=== PATIENT | female | born 1940 | race Caucasian/White ===

== ENCOUNTER 2018-12-21 00:48 | Inpatient (IN) | payer MEDICARE, MEDICAID ==
[~2018-12-21] VITALS: Ht 167.6 cm; Wt 100.7 kg
--- NOTE | 2018-12-21 00:53 | NUR ---
ED Nurse Note: PT ARRIVED WITH RA [facility] FROM A [facility]. PT STATES SHE WAS FEELING SHORTNESS OF BREATH WHEN SHE WENT OUT FOR A WALK. PLACED ON BUILDING RIGGER, EKG IS BEING COMPLETED.
[2018-12-21 00:56] VITALS: BP 118/72
--- NOTE | 2018-12-21 01:00 | Emergency Room Report ---
History of Present Illness General Chief Complaint: Chest Pain Source: EMS Present Illness HPI 78-year-old female history lives limited secondary to dementia presents with shortness of breath, chest pain x1 day possibly, patient was seen walking outside halfway, she states that there has been a transplantation of her chest and they are trying to steal her organs, unknown aggravating relieving factors severity is unknown, patient has a history of COPD and presents for evaluation Allergies: Coded Allergies: No Known Allergies (Unverified , 12/21/18) Patient History Limited by: medical condition - Dementia Past Medical History: see triage record Reviewed Nursing Documentation: PMH: Agreed; PSxH: Agreed Nursing Documentation-PMH Past Medical History: No History, Except For Hx COPD: Yes History Of Psychiatric Problem: Yes Review of Systems All Other Systems: limited - Dementia Physical Exam Vital Signs Date Time Temp Pulse Resp B/P (MAP) Pulse Ox O2 Delivery O2 Flow Rate FiO2 12/21/18 00:51 98.2 92 20 118/72 (87) 97 Room Air Sp02 EP Interpretation: reviewed, normal General Appearance: alert, GCS 15, mild distress Head: normocephalic, atraumatic Eyes: bilateral eye PERRL, bilateral eye EOMI ENT: uvula midline, moist mucus membranes Neck: supple, thyroid normal, supple/symm/no masses Respiratory: decreased breath sounds, wheezing Cardiovascular #1: normal peripheral pulses, regular rate, rhythm, no edema, no gallop, no murmur Gastrointestinal: non tender, soft, no guarding, no rebound Musculoskeletal: normal inspection Neurologic: alert, responsive Psychiatric: mood/affect normal Skin: no rash, warm/dry Procedures Critical Care Time Critical Care Time Given the critical condition in which the patient arrived, the patient was immediately assessed by myself and the nurse, and cardiac monitoring initiated due to the potential for rapid decompensation of the patient's clinical condition. During the course of the patient's stay, I spent a considerable amount of time at the bedside performing serial re-evaluations of the patient's hemodynamic and clinical status because of the recognized potential threat to life or limb in this condition. I then had a chance to review not only all of the available current laboratory and radiographic studies obtained today, but I also reviewed old records available to me at the time. Additionally, any ancillary information available including professor of engineering records were reviewed. Sequential vital signs were obtained. Critical Care time of 34 minutes was performed exclusive of billable procedures. Medical Decision Making Diagnostic Impression: Primary Impression: Chest pain Qualified Codes: R07.9 - Chest pain, unspecified Additional Impressions: COPD exacerbation CHF exacerbation Qualified Codes: I50.23 - Acute on chronic systolic (congestive) heart failure ER Course 78-year-old female presents with acute shortness of breath initially in resp distress differential diagnosis includes COPD, CHF exacerbation, ACS patient with pulmonary edema chest x-ray, We will start Lasix, will start steroids for possible COPD exacerbation as well , breathing treatments Reevaluation 2:35 AM, patient still short of breath, but slowly improving Patient will be admitted to telemetry Reevaluation 3:19AM patient comfortable sleeping Patient admitted to Dr. Castro Laboratory Tests Test 12/21/18 01:10 White Blood Count 6.0 K/UL (4.8-10.8) Red Blood Count 3.35 M/UL (4.20-5.40) L Hemoglobin 10.7 G/DL (12.0-16.0) L Hematocrit 32.2 % (37.0-47.0) L Mean Corpuscular Volume 96 FL (80-99) Mean Corpuscular Hemoglobin 32.0 PG (27.0-31.0) H Mean Corpuscular Hemoglobin Concent 33.3 G/DL (32.0-36.0) Red Cell Distribution Width 13.1 % (11.6-14.8) Platelet Count 257 K/UL (150-450) Mean Platelet Volume 5.3 FL (6.5-10.1) L Neutrophils (%) (Auto) 61.3 % (45.0-75.0) Lymphocytes (%) (Auto) 27.7 % (20.0-45.0) Monocytes (%) (Auto) 6.4 % (1.0-10.0) Eosinophils (%) (Auto) 3.5 % (0.0-3.0) H Basophils (%) (Auto) 1.1 % (0.0-2.0) Sodium Level 132 MMOL/L (136-145) L Potassium Level 4.2 MMOL/L (3.5-5.1) Chloride Level 96 MMOL/L (98-107) L Carbon Dioxide Level 29 MMOL/L (21-32) Anion Gap 7 mmol/L (5-15) Blood Urea Nitrogen 24 mg/dL (7-18) H Creatinine 1.0 MG/DL (0.55-1.30) Estimate Glomerular Filtration Rate mL/min (>60) Glucose Level 129 MG/DL (74-106) H Calcium Level 8.9 MG/DL (8.5-10.1) Total Bilirubin 0.4 MG/DL (0.2-1.0) Aspartate Amino Transferase (AST) 29 U/L (15-37) Alanine Aminotransferase (ALT) 40 U/L (12-78) Alkaline Phosphatase 51 U/L (46-116) Troponin I 0.000 ng/mL (0.000-0.056) Total Protein 7.1 G/DL (6.4-8.2) Albumin 3.8 G/DL (3.4-5.0) Globulin 3.3 g/dL Albumin/Globulin Ratio 1.2 (1.0-2.7) Lipase 157 U/L (73-393) EKG Diagnostic Results EKG Time: 00:53 EP Interpretation: NSR, rate 67, QTc 456, no acute ST elevations, normal axis Rhythm Strip Diag. Results Rhythm Strip Time: 01:15 EP Interpretation: yes Rate: 68 Rhythm: NSR, no PVC's, no ectopy Chest X-Ray Diagnostic Results Chest X-Ray Diagnostic Results : Chest X-Ray Ordered: Yes # of Views/Limited/Complete: 1 View Indication: Chest Pain EP Interpretation: Yes Interpretation: other - pulmonary edema Impression: Other - pulmonary edema Electronically Signed by: Franklin Vines MD Last Vital Signs Date Time Temp Pulse Resp B/P (MAP) Pulse Ox O2 Delivery O2 Flow Rate FiO2 12/21/18 00:56 92 20 Room Air 12/21/18 00:51 98.2 118/72 (87) 97 Disposition: ADMITTED INPATIENT Condition: Stable Franklin Vines MD Dec 21, 2018 01:00
--- NOTE | 2018-12-21 01:05 | NUR ---
ED Nurse Note: PT ATTEMPTED TO TAKE OUT IV SITE; PT WAS REORIENTED AND IV SITE SECURED
[2018-12-21] MEDS ORDERED: Solu-MEDROL 125mg Inj IVP ONE (01:15)
--- NOTE | 2018-12-21 01:16 | NUR ---
ED Nurse Note: PT REFUSED PREDNISONE, INFORMED ERMD. AWAITING FOR NEW ORDERS
[2018-12-21] MEDS: Ipratropium 0.02% Inh Soln 2.5ml UD HHN SCH ×3 (01:21→01:34)
[2018-12-21] MEDS: Albuterol ud Inhalation HHN SCH ×3 (01:21→01:34)
[2018-12-21 01:27] LABS: BASOPHILS % (AUTO) 1.1 % (0.0-2.0); EOSINOPHILS % (AUTO) 3.5 % (0.0-3.0); HEMATOCRIT 32.2 % (37.0-47.0); HEMOGLOBIN 10.7 G/DL (12.0-16.0); LYMPHOCYTES % (AUTO) 27.7 % (20.0-45.0); MEAN CORPUSCULAR VOLUME 96 FL (80-99); MONOCYTES % (AUTO) 6.4 % (1.0-10.0); NEUTROPHILS % (AUTO) 61.3 % (45.0-75.0); PLATELET COUNT 257 K/UL (150-450); RED BLOOD COUNT 3.35 M/UL (4.20-5.40); RED CELL DISTRIBUTION WIDTH 13.1 % (11.6-14.8)
[2018-12-21 01:36] LABS: ANION GAP 7 mmol/L (5-15); BLOOD UREA NITROGEN 24 mg/dL (7-18); CALCIUM 8.9 MG/DL (8.5-10.1); CARBON DIOXIDE 29 MMOL/L (21-32); CHLORIDE 96 MMOL/L (98-107); POTASSIUM 4.2 MMOL/L (3.5-5.1); SODIUM 132 MMOL/L (136-145)
[2018-12-21 01:41] LABS: ALANINE AMINOTRANSFERASE 40 U/L (12-78); ALBUMIN 3.8 G/DL (3.4-5.0); ALBUMIN/GLOBULIN RATIO 1.2 (1.0-2.7); ALKALINE PHOSPHATASE 51 U/L (46-116); ASPARTATE AMINO TRANSFERASE 29 U/L (15-37); BILIRUBIN,TOTAL 0.4 MG/DL (0.2-1.0)
--- NOTE | 2018-12-21 01:51 | NUR ---
ED Nurse Note: RT AT THE BEDSIDE.
--- NOTE | 2018-12-21 02:30 | NUR ---
ED Nurse Note: XRAY COMPLETED
[2018-12-21] MEDS ORDERED: COLACE100 MG ORAL (02:58)
[2018-12-21] MEDS ORDERED: NITROSTAT0.4 M1 SL (02:58)
[2018-12-21] MEDS ORDERED: CRANBERRY450 M4 PO (02:58)
[2018-12-21] MEDS ORDERED: ROBITUSSIN100 MG/52 ORAL (02:58)
[2018-12-21] MEDS ORDERED: FLEET ENEMA133 M1 RC (02:58)
[2018-12-21] MEDS ORDERED: ATORVASTATIN CA20 MG ORAL (02:58)
[2018-12-21] MEDS ORDERED: DEPAKOTE SPRIN125 MG PO (02:58)
[2018-12-21] MEDS ORDERED: ASPIRIN EC325 MG ORAL (02:58)
[2018-12-21] MEDS ORDERED: PEPCID AC20 M2 PO (02:58)
[2018-12-21] MEDS ORDERED: LOVENOX40 MG/0.4 SUBQ (02:58)
[2018-12-21] MEDS ORDERED: ALBUTEROL2.5 MG/3 M INH (02:58)
[2018-12-21] MEDS ORDERED: ADVAIR 250/501 PUFFS INH (02:58)
[2018-12-21] MEDS ORDERED: CLONIDINE0.1 MG PO (02:58)
[2018-12-21] MEDS ORDERED: AMANTADINE100 M2 ORAL (02:58)
[2018-12-21] MEDS ORDERED: MOM30 ML ORAL (02:58)
--- NOTE | 2018-12-21 03:00 | NUR ---
ED Nurse Note: PT REFUSED VRE, CRE, AND MRSA SWABS
--- NOTE | 2018-12-21 03:15 | NUR ---
ED Nurse Note: PT URINATED ON BED. PT REFUSED TO REMOVE PANTS. PT LINENS WERE CHANGED.
[2018-12-21] MEDS ORDERED: PREDNISONE20 M1 PO (03:20)
[2018-12-21] MEDS ORDERED: SYNTHROID175 MCG ORAL (03:20)
[2018-12-21] MEDS ORDERED: TYLENOL EXTRA500 MG ORAL (03:20)
[2018-12-21] MEDS ORDERED: ZOFRAN4 M1 ORAL (03:20)
[2018-12-21] MEDS ORDERED: ZYPREXA15 MG ORAL (03:20)
[2018-12-21] MEDS ORDERED: ACETAMINOPHEN325 M1 ORAL (03:20)
[2018-12-21] MEDS ORDERED: VITAMIN D400 INTLU ORAL (03:20)
[2018-12-21 03:21] VITALS: BP 131/79
--- NOTE | 2018-12-21 03:53 | NUR ---
ED Nurse Note: TELEPHONE REPORT GIVEN TO OLE THORNE FOR CONTINUITY OF CARE.
--- NOTE | 2018-12-21 04:00 | NUR ---
TRANSFER TO FLOOR: Patient transferred to TELE as ordered, per ERMD. Report given to OLE THORNE . Belongings given to PT.
--- NOTE | 2018-12-21 04:05 | NUR ---
NURSE NOTES: Received pt from ED via tamera. Pt transferred to bed in without any incident. Received report from OLE Perez. Pt is A/Ox1-2. Billings pt to room and unit. electronic device monitor is in placed, IV site intact, asymptomatic, and patent. Bed is in the lowest position and locked. Call light within reach. Belongings list checked and accounted for. No signs/ symptoms of acute distress noted at this time. Will contact Dr. Regan for admission orders.
[2018-12-21 04:10] VITALS: BP 158/71
--- NOTE | 2018-12-21 05:15 | NUR ---
NURSE NOTES: Received admission orders from Dr. Regan. Will note and carry out.
[2018-12-21] MEDS ORDERED: Albuterol/Ipratropium 3ml neb HHN PRN (05:30)
[2018-12-21] MEDS ORDERED: Nitroglycerin Subl 0.4mg tab SL PRN (05:45)
[2018-12-21] MEDS: Solu-MEDROL 40mg Inj IVP SCH ×3 (06:29→22:00)
[2018-12-21] MEDS: Albuterol/Ipratropium 3ml neb HHN SCH ×3 (06:45→20:24)
[2018-12-21 07:20] LABS: ALANINE AMINOTRANSFERASE 41 U/L (12-78); ALBUMIN 4.1 G/DL (3.4-5.0); ALBUMIN/GLOBULIN RATIO 1.2 (1.0-2.7); ALKALINE PHOSPHATASE 50 U/L (46-116); ANION GAP 6 mmol/L (5-15); ASPARTATE AMINO TRANSFERASE 28 U/L (15-37); BILIRUBIN,TOTAL 0.4 MG/DL (0.2-1.0); BLOOD UREA NITROGEN 20 mg/dL (7-18); CALCIUM 8.9 MG/DL (8.5-10.1); CARBON DIOXIDE 33 MMOL/L (21-32); CHLORIDE 98 MMOL/L (98-107); POTASSIUM 3.8 MMOL/L (3.5-5.1); SODIUM 137 MMOL/L (136-145)
--- NOTE | 2018-12-21 07:46 | NUR ---
HAND-OFF: Report given to OLE Huston.
[2018-12-21 08:00] VITALS: BP 139/52
[2018-12-21] MEDS ORDERED: Depakote 125mg Sprinkles ORAL SCH ×2 (09:00→15:00)
[2018-12-21] MEDS: Vitamin D 1000 IU Tab ORAL SCH (09:09)
[2018-12-21] MEDS: Aspirin EC 325mg tab ORAL SCH (09:10)
[2018-12-21] MEDS: OLANZapine 10mg tab ORAL SCH ×2 (09:10→17:34)
[2018-12-21] MEDS: Amantadine 100mg cap ORAL SCH ×2 (09:10→17:34)
[2018-12-21] MEDS: Docusate 100mg cap ORAL SCH (09:10)
[2018-12-21] MEDS: Milk of Magnesia 30ml Ud ORAL SCH (09:10)
[2018-12-21] MEDS: Enoxaparin 40mg Inj SUBQ SCH ×2 (09:12→21:00)
--- NOTE | 2018-12-21 09:37 | NUR ---
CASE MANAGEMENT: REVIEW 78 YR OLD FEMALE BIBA FROM [facility] CC: CHEST PAIN; SOB SI: COPD AND CHF EXACERBATION 98.3 92 20 118/72 97% RA TROP- NEG; H/H 10.7 / 32.2; BUN+ 24 IS: IV LASIX X1 ALBUTEROL HHN ATROVENT IVF NS BOLUS IV SOLUMEDROL X1 : TO TELE DCP: RETURN TO [facility]
--- NOTE | 2018-12-21 14:10 | Cardiac Electrophysiology PN ---
Subjective Subjective [id number] Objective Last 24 Hour Vital Signs Date Time Temp Pulse Resp B/P (MAP) Pulse Ox O2 Delivery O2 Flow Rate FiO2 12/21/18 12:43 68 18 99 Nasal Cannula 28 62 16 95 12/21/18 12:00 61 12/21/18 09:00 Room Air 12/21/18 08:00 97.3 67 19 139/52 (81) 92 12/21/18 06:46 55 17 99 Nasal Cannula 28 65 18 93 12/21/18 04:31 Nasal Cannula 2.0 12/21/18 04:25 72 12/21/18 04:10 96.8 76 20 158/71 (100) 92 12/21/18 04:00 98.2 59 16 126/73 97 Room Air 12/21/18 03:21 98.0 54 15 131/79 100 Room Air 21 12/21/18 01:35 53 15 100 Room Air 21 60 17 100 12/21/18 01:21 56 17 100 Room Air 21 57 21 98 12/21/18 00:56 98.2 92 20 118/72 96 Room Air 12/21/18 00:56 92 20 Room Air 12/21/18 00:51 98.2 92 20 118/72 (87) 97 Room Air Intake and Output 12/20/18 12/21/18 19:00 07:00 Intake Total 1000 ml Output Total 0 ml Balance 1000 ml Intake IV Total 1000 ml Output Urine Total 0 ml # Voids 2 Laboratory Tests Test 12/21/18 01:10 12/21/18 06:10 White Blood Count 6.0 K/UL (4.8-10.8) Red Blood Count 3.35 M/UL (4.20-5.40) L Hemoglobin 10.7 G/DL (12.0-16.0) L Hematocrit 32.2 % (37.0-47.0) L Mean Corpuscular Volume 96 FL (80-99) Mean Corpuscular Hemoglobin 32.0 PG (27.0-31.0) H Mean Corpuscular Hemoglobin Concent 33.3 G/DL (32.0-36.0) Red Cell Distribution Width 13.1 % (11.6-14.8) Platelet Count 257 K/UL (150-450) Mean Platelet Volume 5.3 FL (6.5-10.1) L Neutrophils (%) (Auto) 61.3 % (45.0-75.0) Lymphocytes (%) (Auto) 27.7 % (20.0-45.0) Monocytes (%) (Auto) 6.4 % (1.0-10.0) Eosinophils (%) (Auto) 3.5 % (0.0-3.0) H Basophils (%) (Auto) 1.1 % (0.0-2.0) Sodium Level 132 MMOL/L (136-145) L 137 MMOL/L (136-145) Potassium Level 4.2 MMOL/L (3.5-5.1) 3.8 MMOL/L (3.5-5.1) Chloride Level 96 MMOL/L (98-107) L 98 MMOL/L (98-107) Carbon Dioxide Level 29 MMOL/L (21-32) 33 MMOL/L (21-32) H Anion Gap 7 mmol/L (5-15) 6 mmol/L (5-15) Blood Urea Nitrogen 24 mg/dL (7-18) H 20 mg/dL (7-18) H Creatinine 1.0 MG/DL (0.55-1.30) 1.0 MG/DL (0.55-1.30) Estimat Glomerular Filtration Rate mL/min (>60) mL/min (>60) Glucose Level 129 MG/DL (74-106) H 134 MG/DL (74-106) H Calcium Level 8.9 MG/DL (8.5-10.1) 8.9 MG/DL (8.5-10.1) Total Bilirubin 0.4 MG/DL (0.2-1.0) 0.4 MG/DL (0.2-1.0) Aspartate Amino Transf (AST/SGOT) 29 U/L (15-37) 28 U/L (15-37) Alanine Aminotransferase (ALT/SGPT) 40 U/L (12-78) 41 U/L (12-78) Alkaline Phosphatase 51 U/L (46-116) 50 U/L (46-116) Troponin I 0.000 ng/mL (0.000-0.056) Total Protein 7.1 G/DL (6.4-8.2) 7.5 G/DL (6.4-8.2) Albumin 3.8 G/DL (3.4-5.0) 4.1 G/DL (3.4-5.0) Globulin 3.3 g/dL 3.4 g/dL Albumin/Globulin Ratio 1.2 (1.0-2.7) 1.2 (1.0-2.7) Lipase 157 U/L (73-393) Magnesium Level 1.7 MG/DL (1.8-2.4) L Pro-B-Type Natriuretic Peptide 1961 pg/mL (0-125) H Oliver Bernal MD Dec 21, 2018 14:10
--- NOTE | 2018-12-21 14:44 | Cardiology Report ---
APPROVED REPORT EKG Measurement Heart [id number] Sinus rhythm with 1st degree AV block Otherwise normal ECG
--- NOTE | 2018-12-21 16:10 | NUR ---
NURSE NOTES: Notified the Dr. Bernal that the pt refused the 2d echo and is currently refusing the heart monitor. Will continue to monitor.
--- NOTE | 2018-12-21 16:47 | NUR ---
NURSE NOTES: Patient pulled out her IV, She refuses to let us insert a new one.
--- NOTE | 2018-12-21 17:28 | Diagnostic Imaging Report ---
Indication: Dyspnea Technique: One view of the chest Comparison: none Findings: The heart is markedly enlarged. There is bilateral interstitial congestion. There may be some patchy airspace consolidation on the right. The pleural spaces are grossly clear. Impression: Cardiomegaly with evidence of interstitial edema
--- NOTE | 2018-12-21 17:37 | Diagnostic Imaging Report ---
Indication: Dyspnea Technique: One view of the chest Comparison: 8 minutes earlier Findings: Patient is rotated to the right. The heart remains markedly enlarged. Patchy opacities in the right lung are again demonstrated. Generalized interstitial congestion is again demonstrated. Findings are unchanged Impression: Unchanged findings as described
--- NOTE | 2018-12-21 19:15 | Consultation ---
DATE OF CONSULTATION: 12/21/2018 CARDIOLOGY CONSULTATION CONSULTING PHYSICIAN: Oliver Bernal M.D. REFERRING PHYSICIAN: Mark Regan M.D. REASON FOR CONSULTATION: Chest pain and shortness of breath. HISTORY OF PRESENT ILLNESS: The patient is a 78-year-old lady with underlying dementia, presented to emergency room for shortness of breath and chest pain of one day duration. The patient was seen walking outside of [facility] and stated that she has had a transplantation of her chest and they were trying to organs. The patient also has history of COPD. The patient's blood pressure in the ER was 118/70 with heart rate of 93, respirations 20. She was admitted. At the time of my evaluation, the patient is comfortable, but is confused. Denies any chest pain. REVIEW OF SYSTEMS: Review of systems was negative other than what is mentioned in the history of present illness. PAST MEDICAL HISTORY: As mentioned above. FAMILY HISTORY: Noncontributory. SOCIAL HISTORY: [facility] resident. Does not smoke or drink alcohol. PHYSICAL EXAMINATION: VITAL SIGNS: Show blood pressure of 139/52, pulse 68, respirations 18, and temperature 97.3. HEAD AND NECK: Showed no JVD. LUNGS: Coarse rhonchi. CARDIOVASCULAR: Regular S1 and S2 with no gallop or murmur. ABDOMEN: Soft. EXTREMITIES: No pitting edema. LABORATORY AND DIAGNOSTIC DATA: Labs show white count of 6, hemoglobin 10.7, hematocrit 32.2, and platelet count 257. Sodium is 137, potassium 3.8, BUN of 20, creatinine 1, and glucose of 134. Troponin is negative. BNP is 1961. ASSESSMENT/PLAN: 1. Shortness of breath likely due to congestive heart failure, BNP of almost 2000. We will get an echocardiogram for further evaluation. Start the patient on Lasix mg daily. Get an echo for further evaluation. 2. Hypothyroidism on Synthroid. 3. Hypertension on Lasix and p.r.n. clonidine. 4. COPD. 5. Hyperlipidemia on Lipitor. 6. Dementia. Thank you very much, Dr. Regan, for allowing me to participate in the care of this patient. Please do not hesitate to contact me for any questions regarding my evaluation. Sincerely, Oliver Bernal M.D. DR: Willis JOB#: [id number] CC:
--- NOTE | 2018-12-21 19:33 | NUR ---
HAND-OFF: Report given to OLE Owen. Plan of care endorsed
--- NOTE | 2018-12-21 19:35 | NUR ---
NURSE NOTES: Received report from OLE Huston. Pt is resting in bed. In no acute distress. Received pt with no IV access. Pt refusing IV access. Pt is also refusing lab tech. Bed in lowest position, call light within reach. Will continue plan of care.
[2018-12-21 20:00] VITALS: BP 120/54
--- NOTE | 2018-12-21 20:15 | Consultation ---
DATE OF CONSULTATION: 12/21/2018 HISTORY OF PRESENT ILLNESS: I am familiar with this patient. The patient has been seen by [facility], 78-year-old female with a history of multiple medical comorbidities including COPD, CHF, depression, anxiety, and psychotic disorder. The patient has been treated with Depakote and olanzapine. During the evaluation, the patient is calm and able to answer the questions appropriately. The patient has episodes of anxiety and agitation. The patient is uncooperative with the staff and refusing care and workups. PAST PSYCHIATRIC HISTORY: Schizophrenia. PAST MEDICAL HISTORY: As above. ALLERGIES: No known drug allergies. SUBSTANCE ABUSE HISTORY: No known history of illicit drug use or alcohol. MENTAL STATUS EXAMINATION: The patient is alert and oriented times self. Mood is agitated. Affect is flat. Thought process, there is a paucity of thought content. Thought content, no suicidal or homicidal ideation. Cognition is impaired. Insight and judgment impaired. ASSESSMENT: [place] I Schizoaffective disorder versus schizophrenia. [place] II Deferred. [place] III As above. [place] IV Low to moderate. [place] V 20 PLAN: 1. We will change the Depakote to 500 b.i.d. 2. Zyprexa 10 mg b.i.d. 3. Provide the patient with reality orientation and supportive therapy. Zora Hemphill M.D. DR: Ivanna JOB#: [id number] CC: MIKE
[2018-12-21] MEDS: Depakote 125mg Sprinkles ORAL SCH (21:00)
[2018-12-22] VITALS: BP 120/58
--- NOTE | 2018-12-22 00:52 | History & Physical ---
History of Present Illness General Date patient seen: Dec 21, 2018 Time patient seen: 12:00 Reason for Hospitalization: Chest Pain Present Illness HPI SOB x 1 day and chest pain. No fever, chills, nausea and vomiting. No significant cough. Chest pain nonspecific. Allergies: Coded Allergies: No Known Allergies (Unverified , 12/21/18) Medication History Scheduled Amantadine Hcl* (Amantadine*), 100 MG ORAL TWICE A DAY, (Reported) Aspirin* (Aspirin Ec*), 325 MG ORAL DAILY, (Reported) Atorvastatin Calcium* (Atorvastatin Calcium*), 10 MG ORAL BEDTIME, (Reported) Clonidine HCl (Clonidine HCl), 0.1 MG PO Q6HR, (Reported) Cranberry Fruit Concentrate (Cranberry), 900 MG PO BID, (Reported) Divalproex Sodium (Depakote Sprinkle), 250 MG PO TID, (Reported) Docusate Sodium* (Colace*), 100 MG ORAL DAILY, (Reported) Enoxaparin (Lovenox), 40 MG SUBQ Q12HR, (Reported) Fluticasone/Salmeterol (Advair 250-50 Diskus), 1 PUFF INH EVERY 12 HOURS, ( Reported) Guaifenesin (Guaifenesin), 200 MG ORAL Q4H, (Reported) Levothyroxine Sodium (Synthroid), 150 MCG ORAL DAILY, (Reported) Magnesium Hydroxide (Milk of Magnesia), 30 ML ORAL DAILY, (Reported) Olanzapine (Zyprexa), 10 MG ORAL BID, (Reported) Prednisone (Prednisone), 20 MG PO DAILY, (Reported) Vitamin D (Vitamin D3), 5,000 UNITS ORAL DAILY, (Reported) Scheduled PRN Acetaminophen* (Tylenol Extra Strength*), 1,000 MG ORAL Q6H PRN for Mild Pain/ Temp > 100.5, (Reported) Acetaminophen* (Acetaminophen 325MG Tablet*), 650 MG ORAL Q6H PRN for Mild Pain/ Temp > 100.5, (Reported) Albuterol Sulfate* (Albuterol Sulfate Hhn*), 3 ML INH Q4H PRN for Shortness of Breath, (Reported) Na Phos,M-B/Na Phos,Di-Ba (Fleet Enema), 133 ML RC for Constipation, (Reported) Nitroglycerin (Nitrostat), 0.4 MG SL Q5M X3 DOSES PRN for CHEST PAIN, (Reported) Ondansetron (Zofran), 4 MG ORAL Q4H PRN for Nausea & Vomiting, (Reported) Miscellaneous Medications Famotidine (Pepcid Ac), 20 MG PO, (Reported) Patient History History Provided By: Patient, Medical Record Healthcare decision maker Resuscitation status Full Code Advanced Directive on File Review of Systems Review of Symptoms General ROS: no weight loss or fever Psychological ROS: Psychosis Ophthalmic ROS: no visual changes or eye irritation ENT ROS: no nasal congestion, hearing loss, dizziness Allergy and Immunology ROS: no allergic symptoms or urticaria Hematological and Lymphatic ROS: no swollen glands, unusual bleeding or bruising Endocrine ROS: no polyuria, polydipsia, weight changes, temperature intolerance Respiratory ROS: shortness of breath x 1 day Cardiovascular ROS: chest pain atypical Gastrointestinal ROS: denies abdominal pain, bright red blood in stool. Musculoskeletal ROS: no myalgias or arthralgias Neurological ROS: no TIA or stroke symptoms Dermatological ROS: no new or changing skin lesions, rashes or pruritis Physical Exam Physical Exam General appearance: alert, cooperative at times, no distress, appears stated age Head: Normocephalic, without obvious abnormality, atraumatic Eyes: conjunctivae/corneas clear. PERRL, EOM's intact. Fundi benign Throat: Lips, mucosa, and tongue normal. Teeth and gums normal Neck: supple, symmetrical, trachea midline, no adenopathy, thyroid: not enlarged, symmetric, no tenderness/mass/nodules, no carotid bruit and no JVD Lungs: clear to auscultation bilaterally decreased breath sound Heart: regular rate and rhythm, S1, S2 normal, no murmur, click, rub or gallop Abdomen: soft, non-tender. Bowel sounds normal. No masses, no organomegaly obese Extremities: extremities normal, atraumatic, no cyanosis trace edema Pulses: 2+ and symmetric Skin: Skin color, texture, turgor normal. No rashes or lesions Neurologic: Grossly normal Last 24 Hour Vital Signs Date Time Temp Pulse Resp B/P (MAP) Pulse Ox O2 Delivery O2 Flow Rate FiO2 12/21/18 21:00 Room Air 12/21/18 20:00 79 20 95 Room Air 21 77 20 92 12/21/18 20:00 98.2 75 18 120/54 (76) 95 12/21/18 16:00 87 12/21/18 12:43 68 18 99 Nasal Cannula 28 62 16 95 12/21/18 12:00 61 12/21/18 09:00 Room Air 12/21/18 08:00 97.3 67 19 139/52 (81) 92 12/21/18 06:46 55 17 99 Nasal Cannula 28 65 18 93 12/21/18 04:31 Nasal Cannula 2.0 12/21/18 04:25 72 12/21/18 04:10 96.8 76 20 158/71 (100) 92 12/21/18 04:00 98.2 59 16 126/73 97 Room Air 12/21/18 03:21 98.0 54 15 131/79 100 Room Air 21 12/21/18 01:35 53 15 100 Room Air 21 60 17 100 12/21/18 01:21 56 17 100 Room Air 21 57 21 98 12/21/18 00:56 98.2 92 20 118/72 96 Room Air 12/21/18 00:56 92 20 Room Air 12/21/18 00:51 98.2 92 20 118/72 (87) 97 Room Air Intake and Output 12/20/18 12/21/18 19:00 07:00 Intake Total 1000 ml Output Total 0 ml Balance 1000 ml Intake IV Total 1000 ml Output Urine Total 0 ml # Voids 2 Laboratory Tests Test 12/21/18 01:10 12/21/18 06:10 White Blood Count 6.0 K/UL (4.8-10.8) Red Blood Count 3.35 M/UL (4.20-5.40) L Hemoglobin 10.7 G/DL (12.0-16.0) L Hematocrit 32.2 % (37.0-47.0) L Mean Corpuscular Volume 96 FL (80-99) Mean Corpuscular Hemoglobin 32.0 PG (27.0-31.0) H Mean Corpuscular Hemoglobin Concent 33.3 G/DL (32.0-36.0) Red Cell Distribution Width 13.1 % (11.6-14.8) Platelet Count 257 K/UL (150-450) Mean Platelet Volume 5.3 FL (6.5-10.1) L Neutrophils (%) (Auto) 61.3 % (45.0-75.0) Lymphocytes (%) (Auto) 27.7 % (20.0-45.0) Monocytes (%) (Auto) 6.4 % (1.0-10.0) Eosinophils (%) (Auto) 3.5 % (0.0-3.0) H Basophils (%) (Auto) 1.1 % (0.0-2.0) Sodium Level 132 MMOL/L (136-145) L 137 MMOL/L (136-145) Potassium Level 4.2 MMOL/L (3.5-5.1) 3.8 MMOL/L (3.5-5.1) Chloride Level 96 MMOL/L (98-107) L 98 MMOL/L (98-107) Carbon Dioxide Level 29 MMOL/L (21-32) 33 MMOL/L (21-32) H Anion Gap 7 mmol/L (5-15) 6 mmol/L (5-15) Blood Urea Nitrogen 24 mg/dL (7-18) H 20 mg/dL (7-18) H Creatinine 1.0 MG/DL (0.55-1.30) 1.0 MG/DL (0.55-1.30) Estimat Glomerular Filtration Rate mL/min (>60) mL/min (>60) Glucose Level 129 MG/DL (74-106) H 134 MG/DL (74-106) H Calcium Level 8.9 MG/DL (8.5-10.1) 8.9 MG/DL (8.5-10.1) Total Bilirubin 0.4 MG/DL (0.2-1.0) 0.4 MG/DL (0.2-1.0) Aspartate Amino Transf (AST/SGOT) 29 U/L (15-37) 28 U/L (15-37) Alanine Aminotransferase (ALT/SGPT) 40 U/L (12-78) 41 U/L (12-78) Alkaline Phosphatase 51 U/L (46-116) 50 U/L (46-116) Troponin I 0.000 ng/mL (0.000-0.056) Total Protein 7.1 G/DL (6.4-8.2) 7.5 G/DL (6.4-8.2) Albumin 3.8 G/DL (3.4-5.0) 4.1 G/DL (3.4-5.0) Globulin 3.3 g/dL 3.4 g/dL Albumin/Globulin Ratio 1.2 (1.0-2.7) 1.2 (1.0-2.7) Lipase 157 U/L (73-393) Magnesium Level 1.7 MG/DL (1.8-2.4) L Pro-B-Type Natriuretic Peptide 1961 pg/mL (0-125) H Height (Feet): 5 Height (Inches): 6.00 Weight (Pounds): 222 Medications Current Medications Medications (Trade) Dose Ordered Sig/Elvie Route PRN Reason Start Time Stop Time Status Last Admin Dose Admin Acetaminophen (Tylenol) 650 mg Q6H PRN ORAL Mild Pain/Temp > 100.5 12/21/18 05:45 01/20/19 05:44 Albuterol/ Ipratropium (Albuterol/ Ipratropium) 3 ml Q2HRT PRN HHN Shortness of Breath 12/21/18 05:30 12/26/18 05:29 Albuterol/ Ipratropium (Albuterol/ Ipratropium) 3 ml Q6HRT HHN 12/21/18 07:00 12/26/18 06:59 12/21/18 20:24 Amantadine HCl (Symmetrel) 100 mg TWICE A DAY ORAL 12/21/18 09:00 01/20/19 08:59 12/21/18 17:34 Aspirin (Ecotrin) 325 mg DAILY ORAL 12/21/18 09:00 01/20/19 08:59 12/21/18 09:10 Atorvastatin Calcium (Lipitor) 10 mg BEDTIME ORAL 12/21/18 21:00 01/20/19 20:59 Clonidine HCl (Catapres Tab) 0.1 mg EVERY 6 HOURS PRN ORAL For High Blood Pressure 12/21/18 05:45 01/20/19 05:44 Divalproex Sodium (Depakote Sprinkles) 500 mg Q12HR ORAL 12/21/18 21:00 01/20/19 20:59 Docusate Sodium (Colace) 100 mg DAILY ORAL 12/21/18 09:00 01/20/19 08:59 12/21/18 09:10 Enoxaparin Sodium (Lovenox) 40 mg Q12HR SUBQ 12/21/18 09:00 01/20/19 08:59 12/21/18 09:12 Famotidine (Pepcid) 20 mg DAILY ORAL 12/21/18 09:00 01/20/19 08:59 12/21/18 09:10 Furosemide (Lasix) 40 mg DAILY IV 12/22/18 09:00 01/21/19 08:59 Levothyroxine Sodium (Synthroid) 150 mcg DAILY@0630 ORAL 12/21/18 06:30 01/20/19 06:29 12/21/18 06:29 Magnesium Hydroxide (Mom) 30 ml DAILY ORAL 12/21/18 09:00 01/20/19 08:59 12/21/18 09:10 Nitroglycerin (Ntg) 0.4 mg Q5M PRN SL CHEST PAIN 12/21/18 05:45 01/20/19 05:44 Olanzapine (ZyPREXA) 10 mg BID ORAL 12/21/18 09:00 01/20/19 08:59 12/21/18 17:34 Ondansetron HCl (Zofran) 4 mg Q4H PRN ORAL Nausea & Vomiting 12/21/18 05:45 01/20/19 05:44 Prednisone (predniSONE) 20 mg BID ORAL 12/22/18 09:00 01/21/19 08:59 Vitamin D (Vitamin D) 1,000 intlu DAILY ORAL 12/21/18 09:00 01/20/19 08:59 12/21/18 09:09 Assessment/Plan Problem List: (1) Psychosis ICD Codes: F29 - Unspecified psychosis not due to a substance or known physiological condition SNOMED: 34931591 (2) Hyperlipidemia ICD Codes: E78.5 - Hyperlipidemia, unspecified SNOMED: 53299378 (3) Dyspnea ICD Codes: R06.00 - Dyspnea, unspecified SNOMED: 981780959 (4) COPD exacerbation ICD Codes: J44.1 - Chronic obstructive pulmonary disease with (acute) exacerbation SNOMED: 740024796 (5) CHF exacerbation ICD Codes: I50.9 - Heart failure, unspecified SNOMED: 719173048, 14228026329865 Qualifiers: Qualified Codes: I50.23 - Acute on chronic systolic (congestive) heart failure (6) Chest pain ICD Codes: R07.9 - Chest pain, unspecified SNOMED: 76454752 Qualifiers: Qualified Codes: R07.9 - Chest pain, unspecified Assessment/Plan: COPD exacerbation Chest pain Psychosis Hyperlipidemia Patient will be treated with steroid and BD and being evaluated by cardiology and psychosis. See orders MIPS Hospital declaration INPATIENT level of care is warranted for this patient because patient is a 89 year old with who presents with suspicion of . I have a high level of concern because . Patient is at high risk for . Plan of care/treatment include . Patient care is expected to be greater than 2 midnights. OBSERVATION level of care is warranted for this patient. Patient is a 89 year old with who presents with . Patient will be admitted for 1 midnight, but if additional night(s) is/are necessary, patient will be converted to inpatient status for the entire hospitalization Disposition: Once the patient is stable to leave the hospital, I anticipate the patient will likely be discharged to the following environment: Estimated discharge date: I spent 70 minutes on this patient's case, and minutes was dedicated to counseling and/or care coordination. MIPS (Merit-based Incentive Payment System) Applicable CPT: 82218, 03877 CHECK ALL THAT ARE MET: Measure #5 (CHF): All ages. Prescribe NARINDER/ARB upon discharge for patients with left ventricular systolic dysfunction. If not, the reason is clearly documented in the medical chart. Measure #8 (CHF): All ages. Prescribe a beta gely upon discharge for patients with left ventricular systolic dysfunction. If not, the reason is clearly documented in the medical chart. Measure #47 Advance care plan or surrogate decision maker documented in the medical record. Measure #130 The provider has documented, updated, or reviewed the patients current medication list and has documented it in the patients note. Measure #374 (All): Send report to referring provider. Measure #407(Sepsis due to MSSA bacteremia): Age 18+ Patient treated with a beta-lactam antibiotic (Nafcillin, Oxacillin or Cefazolin) as definitive therapy. MEDICAL COMPLEXITY High complexity medical decision making (need 2/3 categories) Problem - need 4 points Acute/new problem with new plan for workup (4 points, 1 max) Acute/new problem without additional workup (3 points, 1 max) Unstable chronic problem actively being managed (2 point each, 2 max) Stable chronic problem actively being managed (1 point each, 2 max) Self-limited/transient process (constipation, muscle ache, etc) (1 point each , 2 max) Data - need 4 points Reviewed labs/imaging studies (1 points, 2 max) Independent review of imaging (EKG, xrays, etc) (2 points, 2 max) Discussed case with consult/other MD/RN (2 points, 2 max) High Risk - qualify if have one of the following: Severe exacerbation of acute problem, acute mental status change, IV narcotics , monitoring drug levels (vancomycin, INR, tacrolimus etc) Mark Regan MD Dec 22, 2018 00:52
[2018-12-22] MEDS: Albuterol/Ipratropium 3ml neb HHN SCH ×4 (01:40→20:46)
[2018-12-22 04:00] VITALS: BP 119/89
--- NOTE | 2018-12-22 07:15 | NUR ---
HAND-OFF: Report given to OLE Huston.
--- NOTE | 2018-12-22 07:30 | NUR ---
NURSE NOTES: Received report from OLE Owen. Pt is walking around in her room. She is alert and oriented X1. PT ambulates with steady gate. Pt is easily redirected. Will continue to monitor.
--- NOTE | 2018-12-22 07:45 | CDS Physician Query ---
Clarification is required for compliance, coding accuracy, and to reflect severity of illness for this patient Dear Dr. Oliver Bernal M.D. Date: 12/22/2018 Spool Carrier/CDS Name: Víctor De La Fuente CHF exacerbation documented in consultation notes; Labs: BNP: 1962 Tx: IV FUROSEMID Please Clarify: Acuity [] Acute [] Chronic [] Acute on Chronic Type [] Systolic [] Diastolic [] Systolic & Diastolic (Combined) [] Other: Present on Admission: [] Yes [] No [] Clinically Undetermined Physician signature Date Please also document in your Progress Notes and/or Discharge Summary and indicate if the condition was present on admission. KRISTLAD
[2018-12-22] MEDS: Amantadine 100mg cap ORAL SCH ×2 (08:38→17:34)
[2018-12-22] MEDS: Depakote 125mg Sprinkles ORAL SCH ×2 (08:38→21:28)
[2018-12-22] MEDS: OLANZapine 10mg tab ORAL SCH ×2 (08:38→17:34)
[2018-12-22] MEDS: Aspirin EC 325mg tab ORAL SCH (09:00)
[2018-12-22] MEDS: Vitamin D 1000 IU Tab ORAL SCH (09:00)
[2018-12-22] MEDS: Docusate 100mg cap ORAL SCH (09:00)
[2018-12-22] MEDS: Milk of Magnesia 30ml Ud ORAL SCH (09:00)
--- NOTE | 2018-12-22 09:03 | Cardiac Electrophysiology PN ---
Assessment/Plan Assessment/Plan 1. Shortness of breath likely due to congestive heart failure, BNP of almost 2000. Echocardiogram EF 50%. On Lasix 40 mg iv daily. 2. Hypothyroidism on Synthroid. 3. Hypertension on Lasix and p.r.n. clonidine. 4. COPD. 5. Hyperlipidemia on Lipitor. 6. Dementia. AIME RN Subjective Subjective No CP or SOB. On telemetry Objective Last 24 Hour Vital Signs Date Time Temp Pulse Resp B/P (MAP) Pulse Ox O2 Delivery O2 Flow Rate FiO2 12/22/18 08:12 80 20 98 Room Air 21 82 20 93 12/22/18 04:00 98.4 76 18 119/89 (99) 98 12/22/18 01:40 76 20 99 Room Air 21 73 20 97 12/22/18 00:00 97.2 85 18 120/58 (78) 95 12/21/18 21:00 Room Air 12/21/18 20:00 79 20 95 Room Air 21 77 20 92 12/21/18 20:00 98.2 75 18 120/54 (76) 95 12/21/18 16:00 87 12/21/18 12:43 68 18 99 Nasal Cannula 28 62 16 95 12/21/18 12:00 61 12/21/18 09:00 Room Air Intake and Output 12/21/18 12/22/18 18:59 06:59 # Voids 5 1 Objective HEAD AND NECK: No JVD. LUNGS: Coarse rhonchi. CARDIOVASCULAR: Regular S1 and S2 with no gallop or murmur. ABDOMEN: Soft. EXTREMITIES: No pitting edema. Oliver Bernal MD Dec 22, 2018 09:03
[2018-12-22] MEDS: Enoxaparin 40mg Inj SUBQ SCH ×2 (09:31→21:31)
--- NOTE | 2018-12-22 09:36 | NUR ---
NURSE NOTES: Pt is refusing meds and her driver. Asked Dr. Bernal if pt can be cleared from home mission worker standpoint. Per Dr. Bernal, pt is cleared from his standpoint.
--- NOTE | 2018-12-22 14:06 | NUR ---
NURSE NOTES: Called and left message for Dr. Regan, regarding the possibility to downgrade the patient. Will await call back.
--- NOTE | 2018-12-22 14:32 | NUR ---
CASE MANAGEMENT: REVIEW 12/22/18 SI: COPD AND CHF EXACERBATION 98.4 92 20 80/82 98% RA BNP 1961 IS: IV LASIX QD LOVENOX SQ QD PREDNISONE PO BID LIPITOR PO HS DEPAKOTE PO Q12HR AMANTADINE PO BID ASPIRIN PO QD ALBUTEROL Q6 HHN OLANZAPINE PO BID : TO TELE DCP: RETURN TO [facility]
--- NOTE | 2018-12-22 14:51 | NUR ---
NURSE NOTES: Called and left message for Dr. Hemphill for PRN medication that will help with agitation. Will await for call back.
[2018-12-22] MEDS: LORazepam Inj 2mg/ml 1ml IM PRN (16:09)
--- NOTE | 2018-12-22 19:35 | NUR ---
NURSE NOTES: Received report from OLE Huston. Patient in bed, in no acute distress. will continue plan of care.
--- NOTE | 2018-12-22 19:35 | NUR ---
HAND-OFF: Report given to OLE Owen. Plan of care endorsed
[2018-12-22 20:00] VITALS: BP 137/61
[2018-12-22] MEDS ORDERED: ATORVASTATIN CA10 MG ORAL (21:45)
[2018-12-22] MEDS ORDERED: SYNTHROID150 MCG ORAL (21:51)
[2018-12-22] MEDS ORDERED: VITAMIN D35000 UNI2 PO (21:51)
[2018-12-22] MEDS ORDERED: ZYPREXA10 MG ORAL (21:51)
[2018-12-23] VITALS: BP 148/64
--- NOTE | 2018-12-23 | General Progress Note ---
Assessment/Plan Problem List: (1) Psychosis ICD Codes: F29 - Unspecified psychosis not due to a substance or known physiological condition SNOMED: 50330123 (2) Hyperlipidemia ICD Codes: E78.5 - Hyperlipidemia, unspecified SNOMED: 22128900 (3) Dyspnea ICD Codes: R06.00 - Dyspnea, unspecified SNOMED: 779873343 (4) COPD exacerbation ICD Codes: J44.1 - Chronic obstructive pulmonary disease with (acute) exacerbation SNOMED: 413647105 (5) CHF exacerbation ICD Codes: I50.9 - Heart failure, unspecified SNOMED: 289007367, [id number] Qualifiers: Qualified Codes: I50.23 - Acute on chronic systolic (congestive) heart failure (6) Chest pain ICD Codes: R07.9 - Chest pain, unspecified SNOMED: 87879572 Qualifiers: Qualified Codes: R07.9 - Chest pain, unspecified Status: doing well Status Narrative Will decrease steroid. She is congested. Will start her on ceftin. Cleared by cardiology. Plan dc tomorrow. Assessment/Plan: COPD exacerbation Chest pain Psychosis Hyperlipidemia Patient will be treated with steroid and BD and being evaluated by cardiology and psychosis. See orders Subjective Date patient seen: Dec 22, 2018 ROS Limited/Unobtainable: No Constitutional: Reports: other Allergies: Coded Allergies: No Known Allergies (Unverified , 12/21/18) Subjective She takes meds intermittently. Refuses echo. Objective Last 24 Hour Vital Signs Date Time Temp Pulse Resp B/P (MAP) Pulse Ox O2 Delivery O2 Flow Rate FiO2 12/22/18 21:00 Room Air 12/22/18 20:46 81 18 98 Nasal Cannula 28 79 18 95 12/22/18 20:00 98.2 87 18 137/61 (86) 95 12/22/18 20:00 87 12/22/18 14:01 77 20 97 Room Air 21 78 20 92 12/22/18 09:00 Room Air 12/22/18 08:12 80 20 98 Room Air 21 82 20 93 12/22/18 04:00 98.4 76 18 119/89 (99) 98 12/22/18 01:40 76 20 99 Room Air 21 73 20 97 12/22/18 00:00 97.2 85 18 120/58 (78) 95 Intake and Output 12/21/18 12/22/18 19:00 07:00 # Voids 5 1 Height (Feet): 5 Height (Inches): 6.00 Weight (Pounds): 222 General Appearance: no apparent distress EENT: PERRL/EOMI Neck: non-tender, supple Cardiovascular: normal peripheral pulses Respiratory/Chest: chest wall non-tender, no respiratory distress Abdomen: normal bowel sounds, non tender, soft Extremities: normal range of motion, non-tender Edema: no edema noted Arm (L), no edema noted Arm (R), no edema noted Leg (L), no edema noted Leg (R), no edema noted Pedal (L), no edema noted Pedal (R), no edema noted Generalized 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
[2018-12-23] MEDS: LORazepam Inj 2mg/ml 1ml IM PRN (00:55)
[2018-12-23] MEDS: Albuterol/Ipratropium 3ml neb HHN SCH ×4 (01:57→19:20)
--- NOTE | 2018-12-23 02:15 | Progress Note ---
DATE: 12/23/2018 SUBJECTIVE: The patient is refusing medications. However, she does not have capacity to refuse medicines as she is unable to understand process, communicate rationally. The patient is disorganized and delusional. She is unable to provide any meaningful history. In addition, she gets agitated and has poor impulse control. She received Ativan IM today. MENTAL STATUS EXAMINATION: The patient is alert and confused. Mood is neutral. Affect is flat. Thought process, there is a paucity of thought content. Thought content, no suicidal or homicidal ideations. ASSESSMENT: Dementia with behavior disturbance. PLAN: 1. The patient will be continued on Zyprexa 10 mg b.i.d. 2. Ativan will be started for her q.6 h. p.r.n. 3. The patient lacks capacity to make decisions refuse medications. Zora Hemphill M.D. DR: Chapo JOB#: [id number] CC:
[2018-12-23 04:00] VITALS: BP 124/48
--- NOTE | 2018-12-23 07:15 | NUR ---
HAND-OFF: Report given to OLE Terry.
--- NOTE | 2018-12-23 07:20 | NUR ---
NURSE NOTES: Nurse report given by OLE Owen. Patient's sleeping in bed, low wray, no s/s of distress or SOB. Patient refused diagnostic cardiac sonographer, IV access, MD is aware. Patient's wearing shoes in bed. Bed low and locked, call light within reach. AO x 1. Will continue to monitor closely.
[2018-12-23 08:00] VITALS: BP 116/56
[2018-12-23] MEDS: Amantadine 100mg cap ORAL SCH ×2 (09:04→18:00)
[2018-12-23] MEDS: Milk of Magnesia 30ml Ud ORAL SCH (09:04)
[2018-12-23] MEDS: Vitamin D 1000 IU Tab ORAL SCH (09:04)
[2018-12-23] MEDS: Depakote 125mg Sprinkles ORAL SCH (09:04)
[2018-12-23] MEDS: OLANZapine 10mg tab ORAL SCH ×2 (09:05→18:00)
[2018-12-23] MEDS: Aspirin EC 325mg tab ORAL SCH (09:05)
[2018-12-23] MEDS: Docusate 100mg cap ORAL SCH (09:05)
[2018-12-23] MEDS: Enoxaparin 40mg Inj SUBQ SCH (09:06)
--- NOTE | 2018-12-23 10:48 | NUR ---
RADIOLOGY DEPT., CHEST X-RAY DONE.-P.DYE
[2018-12-23 12:00] VITALS: BP 129/74
--- NOTE | 2018-12-23 12:35 | Diagnostic Imaging Report ---
Indication: Cough Comparison: 12/21/2018 A single view chest radiograph was obtained. Findings: Pulmonary vascular congestion demonstrated. The heart is enlarged. The aorta is ectatic. Bones are unremarkable. IMPRESSION: CHF
--- NOTE | 2018-12-23 13:29 | NUR ---
CASE MANAGEMENT: REVIEW 12/23/18 SI: COPD AND CHF EXACERBATION 98.3 71 20 129/74 98% RA IS: CEFTIN PO Q12 IV LASIX QD LOVENOX SQ QD PREDNISONE PO BID LIPITOR PO HS DEPAKOTE PO Q12HR AMANTADINE PO BID ASPIRIN PO QD ALBUTEROL Q6 HHN OLANZAPINE PO BID IM ATIVAN Q6/PRN ASPIRIN PO QD PLAN: CARDIO CONSULT CLEAR EXPECTED DISCHARGE TOMORROW : TO TELE DCP: RETURN TO [facility]
--- NOTE | 2018-12-23 13:45 | Cardiac Electrophysiology PN ---
Assessment/Plan Assessment/Plan 1. Shortness of breath likely due to congestive heart failure, BNP of almost 2000. Echocardiogram EF 50%. Change Lasix to 40 mg po daily. 2. Hypothyroidism on Synthroid. 3. Hypertension on Lasix and p.r.n. clonidine. 4. COPD. 5. Hyperlipidemia on Lipitor. 6. Dementia. AIME RN OK to DC from cardiac stand point Subjective Subjective No CP or SOB. Has no iv access. Refusing iv placement Objective Last 24 Hour Vital Signs Date Time Temp Pulse Resp B/P (MAP) Pulse Ox O2 Delivery O2 Flow Rate FiO2 12/23/18 13:33 85 20 97 Room Air 21 82 20 95 12/23/18 12:00 98.1 71 20 129/74 (92) 98 12/23/18 09:00 Room Air 12/23/18 08:00 98.3 80 19 116/56 (76) 98 12/23/18 07:53 97 20 98 Room Air 21 74 20 96 12/23/18 04:00 96.5 71 124/48 (73) 12/23/18 01:57 81 18 98 Nasal Cannula 28 77 18 96 12/23/18 00:00 98.4 76 148/64 (92) 12/22/18 21:00 Room Air 12/22/18 20:46 81 18 98 Nasal Cannula 28 79 18 95 12/22/18 20:00 98.2 79 18 137/61 (86) 95 12/22/18 20:00 12/22/18 14:01 77 20 97 Room Air 21 78 20 92 Intake and Output 12/22/18 12/23/18 19:00 07:00 # Voids 3 4 Objective HEAD AND NECK: No JVD. LUNGS: Coarse rhonchi. CARDIOVASCULAR: Regular S1 and S2 with no gallop or murmur. ABDOMEN: Soft. EXTREMITIES: No pitting edema. Oliver Bernal MD Dec 23, 2018 13:45
[2018-12-23] MEDS ORDERED: FUROSEMIDE20 M1 ORAL (15:21)
[2018-12-23] MEDS ORDERED: POTASSIUM40 MEQ/11 PO (15:23)
[2018-12-23] MEDS ORDERED: CEFUROXIME500 MG PO ×2 (15:27→15:28)
--- NOTE | 2018-12-23 15:54 | NUR ---
DISCHARGE PLANNED: PATIENT RETURNING TO [facility] ROOM: A8D SKILLED T:[phone] FOR NURSE TO NURSE REPORT F:[phone] [facility] HAS BEEN ARRANGED FOR 1800 PICKUP VOICEMAIL TO [employer] [facility] ([phone]) INFORM GUARDIAN OF RETURN TO FACILITY
[2018-12-23 15:56] VITALS: BP 111/69
--- NOTE | 2018-12-23 16:00 | NUR ---
NURSE NOTES: Spoke to OMAR Dunlap from [facility] regarding about patient's getting discharged per Dr. Regan's order. Fabi acknowledged and will wait for the patient to be transferred by [facility] at 1800.
--- NOTE | 2018-12-23 18:00 | NUR ---
NURSE NOTES: Patient refused her 1800 medications. Patient teaching given to patient regarding the risk of not taking medications. Patient still refused.
--- NOTE | 2018-12-23 18:09 | NUR ---
NURSE NOTES: [facility] called and reported they will be late another 30 minutes.
--- NOTE | 2018-12-23 19:15 | NUR ---
NURSE NOTES: Call [facility] again about arrival time, they said it'll be another 30 minutes.
--- NOTE | 2018-12-23 19:38 | NUR ---
HAND-OFF: Report given to OLE Taylor. Plan of care endorsed. Patient's stable.
--- NOTE | 2018-12-23 19:55 | NUR ---
NURSE NOTES: Received pt from OLE Terry. Pt asleep and receiving breathing treatment in bedside chair. Bed in lowest position. Call light within reach. called and spoke with [facility] development representative. ETA Is 15-20 mins. Will continue to monitor.
[2018-12-23 20:00] VITALS: BP 99/56
--- NOTE | 2018-12-23 20:35 | NUR ---
HAND-OFF: Report given to Ambulance personnel. Pt stable and on her way to [facility].
--- NOTE | 2018-12-23 23:30 | Progress Note ---
DATE: 12/23/2018 SUBJECTIVE: The patient continues to be easily agitated and confused, presents with disorganized speech and behavior with poor insight, not able to be engaged easily agitated. MENTAL STATUS EXAMINATION: The patient is alert and oriented times self. Mood is agitated. Affect is flat. Thought process, there is a paucity of thought content. Thought content, no suicidal or homicidal ideation. Cognition is impaired. ASSESSMENT: Dementia with behavior disturbance. PLAN: We will continue current care. Provide the patient with reality orientation and supportive therapy. Zora Hemphill M.D. DR: SVEN JOB#: [id number] CC: MIKE
[2018-12-24] MEDS ORDERED: Furosemide 40mg tab ORAL SCH (09:00)
--- NOTE | 2018-12-25 08:59 | Discharge Summary ---
Discharge Summary Discharge Summary _ DATE OF ADMISSION: 12/21/2018 DATE OF DISCHARGE: 12/23/2018 DISCHARGED BY: Dr. Mark Regan CONSULTANTS: Dr. Oliver Hemphill BRIEF HOSPITAL COURSE: Patient is a 78-year-old female, who presented to ED for evaluation of 1 day shortness of breath and chest pain. There was no fever, chills, nausea or vomiting. No significant cough. Chest pain was nonspecific. Patient was seen walking outside a custodial. Patient stated that has been transplantation of her chest and they are trying to steal her organs. She has a history of COPD and psychosis. Upon evaluation at the ED, vital signs were normal. She was saturating 97% on room air. Blood work did not show any leukocytosis. Hemoglobin 11, hematocrit 32. BUN was 24. Creatinine was normal at 1.0. Troponin was negative. EKG showed normal sinus rhythm with no acute ST elevation. Chest x-ray showed pulmonary edema. She was given Lasix and was started on steroids. She was given breathing treatment. On reevaluation, patient was still short of breath but slowly improved. She was then admitted to telemetry for COPD exacerbation. She was admitted to monitored floor. She was continued on nebulizer treatment. She was given IV steroids. [employer] was consulted. Patient had BNP of almost 2000. She was given IV Lasix daily. She was continued on Synthroid and Lipitor. Echocardiogram done showed EF of 50%. Psychiatric evaluation was done. Patient had episodes of anxiety and agitation. Patient was uncooperative with staff and refusing care and work-up. Insight and judgment impaired. Cognition impaired. She was diagnosed with schizoaffective disorder versus schizophrenia. She was given Zyprexa 10 mg twice daily and Depakote 500 mg. She was given Ativan as needed. She was diagnosed to the capacity to make decisions or refuse medications. She refused IV insertion. Lasix and steroid was changed to p.o. She was eventually discharged back to [facility]. FINAL DIAGNOSES: Acute COPD exacerbation Shortness of breath likely due to acute diastolic congestive heart failure, BNP of almost 2000 Dementia with behavioral disturbance Hypothyroidism Hypertension Hyperlipidemia DISPOSITION: Patient was discharged to a SNF. DISCHARGE MEDICATIONS: Refer to Discharge Medication List. I have been assigned to complete a discharge summary on this account, I was not involved with the patient's management.--DANIKA Lennon Jacqueline Robles NP Dec 25, 2018 08:59
--- NOTE | 2018-12-28 15:55 | Cardiology Report ---
APPROVED REPORT EXAM: Two-dimensional and M-mode echocardiogram with Doppler and color Doppler. INDICATION Chest Pain M-Mode DIMENSIONS IVSd1.2 (0.7-1.1cm)Left Atrium (MM)2.7 (1.6-4.0cm) LVDd5.6 (3.5-5.6cm)Aortic Root4.5 (2.0-3.7cm) PWd1.2 (0.7-1.1cm)Aortic Cusp Exc.2.7 (1.5-2.0cm) LVDs4.0 (2.5-4.0cm) PWs1.6 cm Technically difficult and incomplete study due to poor acoustic windows and imcompliant patient. Left ventricular chamber size at upper limits of normal. Normal systolic function and wall motion. Left ventricular ejection fraction estimated to be 50 %. Mild left ventricular hypertrophy. Anterior Echo-free space, may be due to pericardial fat or effusion. All other cardiac chamber sizes are within normal limits. Focal aortic valve sclerosis with adequate cusp excursion. Aortic root and ascending aorta dilatation with 2D measurement and Mmode. Thickened mitral valve leaflets with normal excursion. Mitral annulus and aortic root calcification. Normal pulmonic valve structure. Normal tricuspid valve structure. Subcostal views are not obtained . A color flow and spectral Doppler study was performed and revealed: Aortic regurgitation seen with color doppler. Mitral regurgitation seen with color doppler. Trace tricuspid regurgitation. Pulmonic regurgitation present.
== END 2018-12-23 20:40 | DRG 190 ==
LOC: EDBD 00:48 → EMR 01:09 → 2E 02:07 → EDBEDREQ 03:46
DX: J44.1 Chronic obstructive pulmonary disease with (acute) exacerbation (principal); I50.33 Acute on chronic diastolic (congestive) heart failure; F03.91 Unspecified dementia, unspecified severity, with behavioral disturbance; I11.0 Hypertensive heart disease with heart failure; E03.9 Hypothyroidism, unspecified; E78.5 Hyperlipidemia, unspecified; F25.9 Schizoaffective disorder, unspecified; F20.9 Schizophrenia, unspecified
CPT/HCPCS: 36415; 71045; 80053; 83690; 83735; 83880; 84484; 85025; 93005; 93306; 94640; 96361; 96374; 96375; 99291; J7620